=== PATIENT | female | born 1940 | race Caucasian/White ===

== ENCOUNTER 2017-04-12 10:41 | Outpatient (CLI) | payer OTHER, MEDICAID | END 2017-04-12 11:45 | disposition home or self-care (01) | LOC: MRD 10:41 | DX: S92.355A Nondisplaced fracture of fifth metatarsal bone, left foot, initial encounter for closed fracture (principal); M19.072 Primary osteoarthritis, left ankle and foot; M81.8 Other osteoporosis without current pathological fracture; X58.XXXA Exposure to other specified factors, initial encounter; Y93.89 Activity, other specified; Y92.89 Other specified places as the place of occurrence of the external cause; Y99.8 Other external cause status | CPT/HCPCS: 73630 ==

== ENCOUNTER 2017-04-13 10:53 | Emergency (ER) | payer OTHER, MEDICAID ==
[~2017-04-13] VITALS: Ht 162.6 cm; Wt 117.0 kg
[2017-04-13 10:58] VITALS: BP 120/95
--- NOTE | 2017-04-13 11:04 | NUR ---
Patient transferred to bed 7 via wheelchair by tech. RN evaluating patient at bedside.
--- NOTE | 2017-04-13 11:13 | NUR ---
PATIENT PRESENTS TO ED WITH c/o foot pain left s/p mechanical fall 3 days ago----seen yesterday in urgent care and they did an xray per pt was told she has a fx and to come to ER for medical doctor ---pt states she also was told to return Saturday for an Ortho referral hx---htn, dm, arthritis, rx---insulin, DENIES N/V/D; SKIN IS PINK/WARM/DRY; AAOX4 WITH EVEN AND STEADY GAIT; LUNGS CLEAR BL; HR EVEN AND REGULAR; PT DENIES ANY FEVER, CP, SOB, OR COUGH AT THIS TIME; PATIENT STATES PAIN OF 9/10 AT THIS TIME;PATIENT POSITIONED FOR COMFORT; HOB ELEVATED; BEDRAILS UP X2; BED DOWN. ER MD MADE AWARE OF PT STATUS. PT AAO X4
--- NOTE | 2017-04-13 11:27 | NUR ---
Dr. Arambula evaluating patient at bedside.
[2017-04-13] MEDS ORDERED: KETOROLAC 60 MG/2 ML VIAL IM ONE (11:35)
--- NOTE | 2017-04-13 12:35 | NUR ---
PT IN THE BATHROOM AT THIS TIME, PT SERGIO, PER PT HER LEFT LEG IS BETTER, LEFT LEG SPLINT IN PLACE
[2017-04-13 12:45] VITALS: BP 120/95
--- NOTE | 2017-04-13 12:46 | NUR ---
Patient discharged with v/s stable. Written and verbal after care instructions given and explained. Patient alert, oriented and verbalized understanding of instructions. Wheel Chair Assisted to car. All questions addressed prior to discharge. ID band removed. Patient advised to follow up with PMD. Rx of MOTRIN AND NORCO given. Patient educated on indication of medication including possible reaction and side effects. Opportunity to ask questions provided and answered. PT AGREED TO FOLLOW UP WITH ORTHO MD, ENCOURAGED FLUID INTAKE TO PREVENT CONSTIPATION AND PT AGREED WITH IT.
== END 2017-04-13 12:46 | disposition home or self-care (01) ==
LOC: MED 10:53
DX: S92.355A Nondisplaced fracture of fifth metatarsal bone, left foot, initial encounter for closed fracture (principal); E11.9 Type 2 diabetes mellitus without complications; I10 Essential (primary) hypertension; F41.9 Anxiety disorder, unspecified; Z90.89 Acquired absence of other organs; X58.XXXA Exposure to other specified factors, initial encounter; Y93.89 Activity, other specified; Y92.89 Other specified places as the place of occurrence of the external cause; Y99.8 Other external cause status
CPT/HCPCS: 29515; 96372; 99283; J1885